=== PATIENT | male | born 1985 | race Caucasian/White ===

== ENCOUNTER 2021-12-02 07:49 | Outpatient (CLI) | payer OTHER, SELFPAY ==
--- NOTE | 2021-12-02 08:10 | XR_ITS ---
WS: [id number] XR shoulder LT min 2V* [id number] REASON FOR EXAM: PAIN IN L SHOULDER FINDINGS: No fracture or focal bone lesion. The acromioclavicular joint is intact and relatively well-preserved. Glenohumeral joint is intact and relatively well-preserved. No soft tissue abnormality. XR/XR shoulder LT min 2V* [id number] IMPRESSION: No significant abnormality of the left shoulder.
== END 2021-12-02 07:50 | disposition home or self-care (01) ==
PROVIDERS: Visit Provider Clinical Nurse Specialist Adult Health
DX: M25.512 Pain in left shoulder (principal)
CPT/HCPCS: 73030

== ENCOUNTER → 2022-01-02 13:22 | Outpatient (BNVA) | payer OTHER, SELFPAY | PROVIDERS: PCP Family Medicine; Visit Provider Clinical Nurse Specialist Adult Health | DX: R00.2 Palpitations (principal); I10 Essential (primary) hypertension | CPT/HCPCS: 80048; 83735 ==

== ENCOUNTER → 2022-01-30 15:14 | Outpatient (BNVA) | payer OTHER, SELFPAY | PROVIDERS: PCP Family Medicine; Visit Provider Family Medicine | DX: R00.2 Palpitations (principal); I10 Essential (primary) hypertension | CPT/HCPCS: 84443 ==

== ENCOUNTER 2023-09-05 00:46 | Emergency (ER) | payer OTHER, SELFPAY ==
[2023-09-05 00:51] VITALS: BP 148/100; PULSE 107; RESP 18; TEMP 37; O2SAT 99; BMI 25.7
--- NOTE | 2023-09-05 01:08 | W.ED.ABDPA2 ---
HPI - Abdominal Pain General: Chief Complaint: Abdominal Pain Stated Complaint: lOWER ABD PAIN Time Seen by Provider: 09/05/23 00:53 History of Present Illness: Patient presents to the ER complaining of abdominal pain. Patient says started last night. Patient said the took a bowel movement and did not change. Patient denies any nausea vomiting diarrhea constipation fevers chills cough cold sore throats. Patient's had pain like this before but never lasting this long. Patient denies any abdominal surgeries. Review of Systems General: Reports: 10 or more systems reviewed and unremarkable except in HPI and below PFSH ED PFSH: Medical History Heart murmur Chronic hypertension Surgical History H/O right inguinal hernia repair Family History Unknown No problems noted. Social History Smoking and tobacco/nicotine status: never used tobacco/nicotine Alcohol intake: never Substance/Drug Use: never Current occupation: works for [employer], truck drive and lead person Physical Exam Const: COMMON NORMALS: no acute distress, average body habitus, patient oriented x3, no limitations, healthy appearing, alert and well nourished HENMT: COMMON NORMALS: normocephalic, atraumatic, hearing grossly normal bilaterally, external ears normal, Normal external nose present, moist oral mucous membranes and oropharynx normal HEAD & SCALP: normocephalic and atraumatic NOSE: Normal external nose present EXTERNAL EAR: Yes external ears normal Neck/C-Spine: COMMON NORMALS: no JVD Chest: COMMONS NORMALS: normal inspection of the chest and normal palpation of entire chest wall Resp: COMMON NORMALS: normal respiratory effort, No retractions, No use of accessory muscles and clear to auscultation bilaterally AUSCULTATION: clear to auscultation bilaterally Cardio: COMMON NORMALS: no JVD, regular rate, regular rhythm, S1 normal heart sound present, S2 normal heart sound present, No gallops present (Cardio), No clicks present (Cardio), No murmurs present (Cardio) and No rub (Cardio) RATE: regular rate RHYTHM: regular rhythm HEART SOUNDS: S1 normal heart sound present and S2 normal heart sound present GI: COMMON NORMALS: Normal to inspection, nondistended, normoactive bowel sounds present, Soft to palpation, No hepatosplenomegaly present and no masses; negative for non-tender (Minimal tender to palpation infraumbilical) PALPATION: Yes Soft to palpation and Yes No hepatosplenomegaly present Neuro: COMMON NORMALS: patient oriented x3 SENSORIUM/ORIENTATION: Yes alert Course Vital Signs: Vital signs: Vital Signs Temperature 98.6 F 09/05/23 02:38 Pulse Rate 86 09/05/23 02:38 Respiratory Rate 16 09/05/23 02:38 Blood Pressure 139/90 09/05/23 02:38 Pulse Oximetry 98 09/05/23 02:38 Oxygen Delivery Me thod Room Air 09/05/23 00:51 MDM - Abdominal Pain Medical Decision Making Patient had lab work that included CBC CMP UA lipase also abdominal x-ray all which was essentially benign in nature. These along with nonimpressive exam findings suggest that the patient does not need to be admitted to the hospital. Patient be discharged home to follow-up with his primary care doctor for further evaluation and treatment. Differential Diagnosis Likely abdominal pain; Unlikely acute appendicitis, calculus of kidney, constipation, diverticulitis, endometriosis, gastroenteritis, pancreatitis or small bowel obstruction Medical Records I reviewed the patient's medical records. Lab Data I reviewed the patient's lab results. 09/05/23 01:00 09/05/23 01:00 Labs/Radiology: Radiology Impressions Abdomen X-Ray 09/05/23 01:34 IMPRESSION: No acute findings. Laboratory Results WBC 14.22 10^3/uL (3.29-11.43) H 09/05/23 01:00 RBC 4.90 10^6/uL (3.85-5.65) 09/05/23 01:00 Hgb 15.10 g/dL (11.27-16.99) 09/05/23 01:00 Hct 43.5 % (37-53) 09/05/23 01:00 MCV 88.8 fl (82-101) 09/05/23 01:00 MCH 30.8 pg (27-33) 09/05/23 01:00 MCHC 34.7 g/dL (30-55) 09/05/23 01:00 RDW 12.2 % (12.1-15.1) 09/05/23 01:00 Plt Count 283 10^3/cmm (157-399) 09/05/23 01:00 MPV 9.4 fL (7.4-10.4) 09/05/23 01:00 Neut % (Auto) 68.8 % 09/05/23 01:00 Lymph % (Auto) 24.0 % 09/05/23 01:00 [place] % (Auto) 6.0 % 09/05/23 01:00 Eos % (Auto) 0.6 % 09/05/23 01:00 Baso % (Auto) 0.3 % 09/05/23 01:00 Neut # (Auto) 9.80 10^3/uL (1.8-7.7) H 09/05/23 01:00 Lymph # (Auto) 3.4 10^3/uL (0.8-4.8) 09/05/23 01:00 [place] # (Auto) 0.9 10^3/uL (0.2-0.9) 09/05/23 01:00 Eos # (Auto) 0.1 10^3/uL (0.0-0.8) 09/05/23 01:00 Baso # (Auto) 0.0 10^3/uL (0.0-0.1) 09/05/23 01:00 Nucleated RBC % (auto) 0 % 09/05/23 01:00 Nucleated RBCs # 0.0 /100WBC 09/05/23 01:00 Sodium 139 mmol/L (136-145) 09/05/23 01:00 Potassium 3.3 mmol/L (3.5-5.1) L 09/05/23 01:00 Chloride 104 mmol/L (98-107) 09/05/23 01:00 Carbon Dioxide 26 mmol/L (22-29) 09/05/23 01:00 Anion Gap 12.3 (5-19) 09/05/23 01:00 BUN 15 mg/dL (6-20) 09/05/23 01:00 Creatinine 0.9 mg/dL (0.7-1.2) 09/05/23 01:00 GFR Calculation 93.9 mL/min (90-130) 09/05/23 01:00 Glucose 108 mg/dL (65-115) 09/05/23 01:00 Calculated Osmolality 289 mOsm/kg (285-295) 09/05/23 01:00 Calcium 9.8 mg/dL (8.5-10.5) 09/05/23 01:00 Total Bilirubin 0.2 mg/dL (0.15-1.2) 09/05/23 01:00 AST 16 U/L (0-40) 09/05/23 01:00 ALT 21 U/L (0-41) 09/05/23 01:00 Alkaline Phosphatase 96 U/L (40-130) 09/05/23 01:00 Total Protein 8.0 g/dL (6.6-8.7) 09/05/23 01:00 Albumin 4.7 g/dL (3.5-5.2) 09/05/23 01:00 Globulin 3.3 g/dL (1.3-4.6) 09/05/23 01:00 Lipase 44 U/L (13-60) 09/05/23 01:00 Urine Color Yellow (Yellow) 09/05/23 01:00 Urine Appearance Clear (CLEAR) 09/05/23 01:00 Urine pH 5 (5-7) 09/05/23 01:00 Ur Specific [place] 1.030 (1.005-1.030) 09/05/23 01:00 Urine Protein Neg (Negative) 09/05/23 01:00 Urine Glucose (UA) Norm (Normal) 09/05/23 01:00 Urine Ketones Negative (Negative) 09/05/23 01:00 Urine Blood Neg (Negative) 09/05/23 01:00 Urine Nitrate Negative (Negative) 09/05/23 01:00 Urine Bilirubin Neg (Negative) 09/05/23 01:00 Urine Urobilinogen Neg mg/dL (Negative) 09/05/23 01:00 Ur Leukocyte Esterase Negative (Negative) 09/05/23 01:00 All radiology interpretation(s) finalized by discharge Discharge Plan Discharge Patient Disposition: Home Clinical Impression: Abdominal pain Qualifiers: Abdominal location: lower abdomen, unspecified Qualified Code(s): R10.30 - Lower abdominal pain, unspecified Condition: Stable Prescriptions: No Action cyclobenzaprine 5 mg tablet PO naproxen 500 mg tablet PO losartan 50 mg tablet See Rx Instructions .ROUTE .COMPLEX Qty: 90 3RF Dose Instruction: TAKE 1 TABLET BY MOUTH EVERY DAY DIRECTED Rx Instructions: TAKE 1 TABLET BY MOUTH EVERY DAY DIRECTED Discharge Orders: Discharge ED (Routine); Ordered 09/05/23 Ordered By: Nick Can Referrals: Ermias Banda MD [Primary Care Provider] - 1 week Patient Instructions: Abdominal Pain (ED) Activity Restrictions/Additional Instructions: Your lab work and physical exam did not show or suggest any reason for your abdominal pain. Please follow-up with your family practice physician for further evaluation testing as needed. Coding Level of Care Code ED [employer] Manager for Lidia Amos
[2023-09-05 01:13] LABS: Add Urine Microscopic? NO; Charge for UA Resulting for Rev
[2023-09-05 01:15] LABS: Basophils % 0.3 %; Eosinophils # 0.1 10^3/uL (0.0-0.8); Eosinophils % 0.6 %; Hematocrit 43.5 % (37-53); Lymphocytes # 3.4 10^3/uL (0.8-4.8); Mean Corpuscular HGB Conc 34.7 g/dL (30-55); Mean Corpuscular Hemoglobin 30.8 pg (27-33); Mean Corpuscular Volume 88.8 fl (82-101); Mean Platelet Volume 9.4 fL (7.4-10.4); Monocytes # 0.9 10^3/uL (0.2-0.9); Neutrophils % 68.8 %; Nucleated Red Blood Cells % 0 %; Platelet Count 283 10^3/cmm (157-399); Red Cell Distribution Width 12.2 % (12.1-15.1); White Blood Count 14.22 10^3/uL (3.29-11.43)
[2023-09-05 01:16] LABS: Bilirubin Urine Neg (Negative); Blood Urine Neg (Negative); Glucose Urine UA Norm (Normal); Ketones Urine Negative (Negative); Leukocyte Esterase Urine Negative (Negative); Nitrate Urine Negative (Negative); Protein Urine Neg (Negative); Urine Appearance Clear (CLEAR); Urine Color Yellow (Yellow); Urobilinogen Urine Neg (Negative); pH Urine 5 (5-7)
[2023-09-05 01:32] LABS: Alanine Aminotransferase 21 U/L (0-41); Albumin Level 4.7 g/dL (3.5-5.2); Alkaline Phosphatase 96 U/L (40-130); Anion Gap 12.3 (5-19); Aspartate Amino Transferase 16 U/L (0-40); Blood Urea Nitrogen 15 mg/dL (6-20); Calcium 9.8 mg/dL (8.5-10.5); Carbon Dioxide 26 mmol/L (22-29); Chloride 104 mmol/L (98-107); Creatinine Clr Calc Pharmacy 126.3017; Globulin 3.3 g/dL (1.3-4.6); Glomerular Filtration Rate 93.9 mL/min (90-130); Glucose 108 mg/dL (65-115); Lipase 44 U/L (13-60); Osmolality Calculated 289 mOsm/kg (285-295); Potassium 3.3 mmol/L (3.5-5.1); Sodium 139 mmol/L (136-145); Total Bilirubin 0.2 mg/dL (0.15-1.2)
--- NOTE | 2023-09-05 01:34 | XRR_ITS ---
PROCEDURE INFORMATION: Exam: XR Abdomen Exam date and time: 09/05/2023 1:37 AM Age: 37 years old Clinical indication: Abdominal pain; Prior surgery; Surgery date: 6+ months; Surgery type: Hernia repair; Additional info: Abd pain TECHNIQUE: Imaging protocol: Radiologic exam of the abdomen. Views: Frontal supine view of the abdomen. 1 View. COMPARISON: No relevant prior studies available. FINDINGS: Gastrointestinal tract: No small bowel dilation or free air identified. The colon is rather fecal filled. Bones/joints: Unremarkable. XR/XR abdomen 1V* [id number] IMPRESSION: No acute findings.
[2023-09-05 02:37] VITALS: BP 139/90; PULSE 86; RESP 16; O2SAT 98
[2023-09-05 02:38] VITALS: BP 139/90; PULSE 86; RESP 16; TEMP 37; O2SAT 98
== END 2023-09-05 02:38 | disposition home or self-care (01) ==
PROVIDERS: Emergency Provider Emergency Medicine; PCP Family Medicine
DX: R10.30 Lower abdominal pain, unspecified (principal); I10 Essential (primary) hypertension
CPT/HCPCS: 74018; 80053; 81003; 83690; 85025; 99284